=== PATIENT | male | born 1995 | race Caucasian/White ===

== ENCOUNTER 2022-08-03 11:07 | Emergency (ER) | payer OTHER ==
--- NOTE | 2022-08-03 11:09 | ERPHSYRPT ---
- History of Present Illness Time Seen by Provider: 08/03/22 11:09 Source: patient Exam Limitations: no limitations Physician History: This is a 26-year-old white male who is right-handed and was sweeping the floor when the broom broke and the metal portion caused approximately 2 cm superficial laceration inner aspect of left forearm below the elbow. This occurred prior to arrival. Patient cannot take any type of vaccination and refuses a tetanus injection. He also states he cannot take any antibiotic over 500 mg. Timing/Duration: today Quality: painful Severity: mild Location: extremities (Left forearm) Associated Symptoms: denies symptoms Allergies/Adverse Reactions: Benzodiazepines Allergy (Verified 08/03/22 11:25) cephalexin Allergy (Verified 08/03/22 11:24) morphine Allergy (Verified 08/03/22 11:25) Home Medications: Brexpiprazole [Rexulti] 1 mg PO DAILY 08/03/22 [History] Dextroamphetamine/Amphetamine [Dextroamp-Amphetamin 20 mg Tab] 20 mg PO BID 08/03/22 [History] Travel Risk - International Travel Have you traveled outside of the country in past 3 weeks: No - Coronavirus Screening Are you exhibiting any of the following symptoms?: No Close contact with a COVID-19 positive Pt in past 14-21 Days: No - Review of Systems Constitutional: No Symptoms Eyes: No Symptoms Ears, Nose, & Throat: No Symptoms Respiratory: No Symptoms Cardiac: No Symptoms Abdominal/Gastrointestinal: No Symptoms Genitourinary Symptoms: No Symptoms Musculoskeletal: No Symptoms Skin: No Symptoms Neurological: No Symptoms Psychological: No Symptoms Endocrine: No Symptoms Hematologic/Lymphatic: No Symptoms Immunological/Allergic: No Symptoms All Other Systems: Reviewed and Negative - Past Medical History Pertinent Past Medical History: Yes - Past Surgical History Past Surgical History: Yes - Nursing Vital Signs Nursing Vital Signs: Initial Vital Signs Pulse Rate 109 H 08/03/22 11:16 Blood Pressure 137/96 08/03/22 11:16 O2 Sat by Pulse Oximetry 100 08/03/22 11:16 Pain Scale Pain Intensity 1 - Physical Exam General Appearance: no apparent distress, alert, anxiety Eye Exam: PERRL/EOMI, eyes nml inspection Ears, Nose, Throat Exam: normal ENT inspection, moist mucous membranes Neck Exam: normal inspection, non-tender, supple, full range of motion Respiratory Exam: airway intact, No chest tenderness, No respiratory distress Cardiovascular Exam: regular rate/rhythm, normal heart sounds, normal peripheral pulses Gastrointestinal/Abdomen Exam: No tenderness Rectal Exam: not done Back Exam: normal inspection, normal range of motion, No CVA tenderness, No vertebral tenderness Extremity Exam: normal range of motion, pelvis stable, lacerations (2 cm transverse oriented laceration. Not actively bleeding. No foreign body present. Patient is neurovascularly intact. 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, normal mood/affect, nml cerebellar function, nml station & gait, sensation nml Skin Exam: laceration Lymphatic Exam: No adenopathy SpO2 Interpretation: normal O2 Delivery: Room Air Procedures - Laceration/Wound Repair Left Volar Arm Time of Procedure: 11:30 Wound Location: Left, lower arm Wound Length (cm): 2 Wound's Depth, Shape: superficial, linear Wound Explored: clean (Examination in bloodless field to the base and no foreign body noted.) Irrigated: Yes Hibiclens Prep: Yes Wound Repaired With: [place] (3 placed) Layer Closure?: No Progress: 08/03/22 11:42 Post laceration repair site was cleaned with Hibiclens solution. Area was then cleaned and dried antibiotic ointment, nonstick gauze and pressure dressing applied. There were no complications the patient taught the procedure well. - Course Nursing assessment & vital signs reviewed: Yes - Progress Progress: improved Counseled pt/family regarding: diagnosis, need for follow-up - Departure Departure Disposition: Home Clinical Impression: Laceration of left forearm Condition: Stable Critical Care Time: No Referrals: JACINDA JI FNP [Primary Care Provider] - Follow up/PCP as directed Additional Instructions: Keep the current dressing in place until noon on 08/04/2022. At that time, may remove the dressing and wash the site with soap and water daily. After each washing, blot dry use a hairdryer to dry the site and then reapply antibiotic ointment of choice and a nonstick bandage. Staple removal in 8 to 10 days. Use Tylenol and ibuprofen for pain control.
[2022-08-03 11:23] VITALS: BP 137/96; PULSE 109; O2SAT 100
== END 2022-08-03 11:55 | disposition home or self-care (01) ==
LOC: ED 11:07
DX: S51.812A Laceration without foreign body of left forearm, initial encounter (principal); W26.8XXA Contact with other sharp object(s), not elsewhere classified, initial encounter; Y93.E9 Activity, other interior property and clothing maintenance; Z79.899 Other long term (current) drug therapy
CPT/HCPCS: 12001; 99281

== ENCOUNTER 2022-09-21 12:24 | Emergency (ER) | payer OTHER ==
[2022-09-21 12:35] VITALS: BP 131/94
--- NOTE | 2022-09-21 12:58 | ERPHSYRPT ---
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 Pt ambulates with an upright steady gait, able to speak in clear full sentences Pt has laceration noted to posterior right third digit. Knuckle is swollen and tender, minimal movement of digit noted. Physician History: 26 yo wm w laceration R dorsal 3rd PIP joint of 15 hours duration. Pt has mild to moderate pain. He is R handed and states that he can not have a Tdap due to prior reaction. Pt denies other injuries at this time. Injury occurred as he was crushing a crystal. Occurred: yesterday (15 yrs ago ) Extremities Pain Location: 3rd finger: right Modifying Factors: Improves With: movement Associated Symptoms: none Allergies/Adverse Reactions: Benzodiazepines Allergy (Verified 08/03/22 11:25) cephalexin Allergy (Verified 08/03/22 11:24) morphine Allergy (Verified 08/03/22 11:25) immuniztions Allergy (Severe, Uncoded 09/21/22 12:36) Swelling I swell when I get any immunization including Tetanus Home Medications: Brexpiprazole [Rexulti] 1 mg PO DAILY 08/03/22 [History] Dextroamphetamine/Amphetamine [Dextroamp-Amphetamin 20 mg Tab] 20 mg PO BID 08/03/22 [History] Hx Tetanus, Diphtheria Vaccination/Date Given: No (allergic) Hx Influenza Vaccination/Date Given: No Hx Pneumococcal Vaccination/Date Given: No Travel Risk - International Travel Have you traveled outside of the country in past 3 weeks: No - Coronavirus Screening Are you exhibiting any of the following symptoms?: No Close contact with a COVID-19 positive Pt in past 14-21 Days: No - Vaccine Status Have you recieved a Covid-19 vaccination: No - Review of Systems Constitutional: No Symptoms Eyes: No Symptoms Ears, Nose, & Throat: No Symptoms Respiratory: No Symptoms Cardiac: No Symptoms Abdominal/Gastrointestinal: No Symptoms Genitourinary Symptoms: No Symptoms Skin: No Symptoms Neurological: No Symptoms Psychological: No Symptoms Endocrine: No Symptoms Hematologic/Lymphatic: No Symptoms Immunological/Allergic: No Symptoms - Past Medical History Pertinent Past Medical History: Yes Psycho-Social History: Attention Deficit Disorder, Bipolar, Other - Past Surgical History Past Surgical History: Yes Gastrointestinal: Appendectomy Musculoskeletal: Orthopedic Surgery Other Surgical History: urethra reopened, right hand surgery - Social History Smoking Status: Current every day smoker Exposure to second hand smoke: Yes Drug Use: none Patient Lives Alone: No - Nursing Vital Signs Nursing Vital Signs: Initial Vital Signs Temperature 97.4 F 09/21/22 12:28 Pulse Rate 98 H 09/21/22 12:28 Respiratory Rate 20 09/21/22 12:28 Blood Pressure 131/94 09/21/22 12:28 O2 Sat by Pulse Oximetry 99 09/21/22 12:28 Pain Scale Pain Intensity 2 Mildly hypertensive - Physical Exam General Appearance: no apparent distress Eyes, Ears, Nose, Throat Exam: normal ENT inspection, TMs normal, pharynx normal, moist mucous membranes Neck Exam: normal inspection, non-tender, supple, full range of motion, No Brudz inski, No Kernig's, No meningismus Cardiovascular/Respiratory Exam: chest non-tender, normal breath sounds, regular rate/rhythm, heart sounds normal Abdominal Exam: non-tender, soft Back Exam: normal inspection, normal range of motion, No CVA tenderness, No vertebral tenderness Shoulder Exam: normal inspection, non-tender, no evidence of injury Elbow/Forearm Exam: normal inspection, non-tender, no evidence of injury Wrist Exam: normal inspection, non-tender, no evidence of injury Hand Exam: laceration (Small, superficial laceration R dorsal PIP joint/good hemostasis/No evidence of tendon injury/FROM including extension/Mild edema/Mild TTP/Good distal capillary return and sensation) DTR - Upper Extremity Exam: bicep (R): 2+, bicep (L): 2+ Neuro/Tendon Exam: normal sensation, normal motor functions, normal tendon functions, responds to pain Mental Status Exam: alert, oriented x 3, cooperative Skin Exam: normal color, warm, dry, No rash SpO2 Interpretation: normal SpO2: 118 O2 Delivery: Room Air - Course Nursing assessment & vital signs reviewed: Yes - Radiology Exams Hand X-ray Interpretation: Discussed w/ radiologist (R hand-old 5th metacarpal fracture/otherwise neg) Ordered Tests: Active Orders 24 hr Category Date Time Status HAND (MINIMUM 3 VIEWS) Stat Exams 09/21/22 12:51 Completed - Progress Progress Note: 09/21/22 13:33 Wound cleansed w Hibiclens per nursing and sterilly dressed Wound not closed due to 15 hours old No evidence of tendon injury/Full extension and strength of digit wnl Pt advised to f/u w hand surgery if he has any problems 09/21/22 15:49 Counseled pt/family regarding: diagnosis, need for follow-up, rad results - Departure Departure Disposition: Home Clinical Impression: Finger laceration Condition: Stable Critical Care Time: No Referrals: DOCTOR,NO FAMILY [Primary Care Provider] - Follow up/PCP as directed Instructions: Wound Care (DC) Additional Instructions: Wash laceration twice a day with soap/water Watch for signs of infection-increasing redness/increasing pain/any pus/temperature greater than 100.5 Follow up with [facility] as needed Start Doxycycline twice a day for 10 days Prescriptions: Doxycycline Monohydrate 100 mg PO BID 10 Days #20 cap
--- NOTE | 2022-09-21 13:09 | XRAY ---
Indication: 3rd finger pain and bruising following injury. Comparison: None 3 portable views right hand demonstrates old 5th metacarpal fracture. No other bony, articular, or soft tissue abnormalities.
[2022-09-21 13:33] VITALS: PULSE 78
[2022-09-21 13:36] VITALS: O2SAT 118
== END 2022-09-21 13:49 | disposition home or self-care (01) ==
LOC: ED 12:24
DX: S61.212A Laceration without foreign body of right middle finger without damage to nail, initial encounter (principal); W26.8XXA Contact with other sharp object(s), not elsewhere classified, initial encounter; Z79.899 Other long term (current) drug therapy; Z28.310 Unvaccinated for COVID-19; Z72.0 Tobacco use
CPT/HCPCS: 73130; 99282

== ENCOUNTER 2024-04-05 20:02 | Emergency (ER) | payer OTHER ==
--- NOTE | 2024-04-05 20:05 | ERPHSYRPT ---
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 It was worse this morning. Despite that he did go to work. In the last several days he st ates that it has been very hot and humid indoors while at work. Patient has no known exposures to individuals similar symptoms or who have been diagnosed with flu's. He denies sore throat. He denies chest pain. He denies cough. He denies shortness of breath. He denies headache. He denies fever. He denies nausea, vomiting and diarrhea. Timing/Duration: yesterday, worse Severity: mild Character of Deficits: none (Moderate) Deficits: no difficulties Baseline/Normal Cognition: alert oriented x 3 Current Cognition: alert oriented x 3 Baseline Gait: walks w/o assistance Associated Symptoms: weakness, other (Dizziness/lightheadedness) Allergies/Adverse Reactions: Benzodiazepines Allergy (Verified 04/05/24 20:26) cephalexin Allergy (Verified 04/05/24 20:26) morphine Allergy (Verified 04/05/24 20:26) immuniztions Allergy (Severe, Uncoded 04/05/24 20:26) Swelling I swell when I get any immunization including Tetanus Home Medications: Dextroamphetamine/Amphetamine [Dextroamp-Amphetamin 20 mg Tab] 20 mg PO BID 08/03/22 [History] Hx Tetanus, Diphtheria Vaccination/Date Given: No (allergic) Hx Influenza Vaccination/Date Given: No Hx Pneumococcal Vaccination/Date Given: No Travel Risk - International Travel Have you traveled outside of the country in past 3 weeks: No - Emerging Infectious Disease Are you exhibiting symptoms associated with any current EIDs: Yes 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) - Review of Systems Constitutional: Weakness Eyes: No Symptoms Ears, Nose, & Throat: No Symptoms Respiratory: No Symptoms Cardiac: No Symptoms Abdominal/Gastrointestinal: No Symptoms Genitourinary Symptoms: No Symptoms Musculoskeletal: No Symptoms Skin: No Symptoms Neurological: Dizziness Endocrine: No Symptoms Hematologic/Lymphatic: No Symptoms Immunological/Allergic: No Symptoms All Other Systems: Reviewed and Negative - Past Medical History Pertinent Past Medical History: Yes Psycho-Social History: Attention Deficit Disorder, Bipolar, Other - Past Surgical History Past Surgical History: Yes Gastrointestinal: Appendectomy Musculoskeletal: Orthopedic Surgery Other Surgical History: urethra reopened, right hand surgery - Social History Smoking Status: Current every day smoker Exposure to second hand smoke: Yes Drug Use: none Patient Lives Alone: No - Nursing Vital Signs Nursing Vital Signs: Initial Vital Signs Temperature 98.3 F 04/05/24 20:28 Pulse Rate 102 H 04/05/24 20:28 Respiratory Rate 13 04/05/24 20:28 Blood Pressure 125/81 04/05/24 20:28 O2 Sat by Pulse Oximetry 98 04/05/24 20:28 Pain Scale Pain Intensity 0 - [place] Coma Scale Best Eye Response (Candie): (4) open spontaneously Best Verbal Response (Candie): (5) oriented Best Motor Response (Candie): (6) obeys commands [place] Total: 15 - Physical Exam General Appearance: no apparent distress, alert Eye Exam: bilateral eye: normal inspection, PERRL, EOMI Ears, Nose, Throat Exam: normal ENT inspection, TMs normal, pharynx normal, moist mucous membranes Neck Exam: normal inspection, non-tender, supple, full range of motion Respiratory: normal breath sounds, lungs clear, airway intact, No chest tenderness, No respiratory distress Cardiovascular: regular rate/rhythm, normal heart sounds, normal peripheral pulses Gastrointestinal: soft, normal bowel sounds, No tenderness Rectal Exam: not done Back Exam: normal inspection, normal range of motion, No CVA tenderness, No vertebral tenderness Extremity Exam: normal inspection, normal range of motion, pelvis stable Mental Status: alert, oriented x 3, cooperative manager sign Exam: normal hearing, normal speech, PERRL, tongue midline Coordination/Gait: normal gait, normal cerebellar function Motor/Sensory: no motor deficit, no sensory deficit, no pronator drift Skin Exam: normal color, warm, dry SpO2 Interpretation: normal O2 Delivery: Room Air - Course Nursing assessment & vital signs reviewed: Yes EKG Interpreted by Me: RATE (95), Sinus Rhythm, NORMAL AXIS, NORMAL INTERVALS, NORMAL QRS, NORMAL ST-T, Other (No acute ischemic changes on today's twelve-lead EKG. No comparison EKG available.) Ordered Tests: Active Orders 24 hr Category Date Time Status Clean Catch Urine Specimen STAT Care 04/05/24 20:36 Active EKG-ER Only STAT Care 04/05/24 20:35 Active IV Insertion STAT Care 04/05/24 20:35 Active Pulse Oximetry (ED) STAT Care 04/05/24 20:35 Active HEAD WITHOUT CONTRAST [CT] Stat Exams 04/05/24 20:35 Completed CBC W DIFF Stat Lab 04/05/24 20:45 Completed CMP Stat Lab 04/05/24 20:45 Completed MONO SCREEN Stat Lab 04/05/24 20:45 Completed UA W/RFX UR CULTURE Stat Lab 04/05/24 20:44 Completed Urine Triage Profile Stat Lab 04/05/24 20:45 Completed Medication Summary Discontinued Medications Generic Name Dose Route Start Last Admin Trade Name Freq PRN Reason Stop Dose Admin Sodium Chloride 1,000 mls @ 999 mls/hr 04/05/24 20:35 04/05/24 21:50 Sodium Chloride 0.9% 1000 Ml IV 04/05/24 21:35 Infused .Q1H1M STA Infusion Sodium Chloride Confirm 04/05/24 20:47 Sodium Chloride 0.9% 1000 Ml Administered 04/05/24 20:48 Dose 1,000 mls @ ud .ROUTE .STK-MED ONE Lab/Rad Data: Laboratory Result Diagrams 04/05/24 20:45 04/05/24 20:45 Laboratory Results 04/05/24 04/05/24 04/05/24 Range/Units 20:45 20:45 20:45 WBC (4.23-9.07) x10^3/uL RBC (4.63-6.08) x10^6/uL Hgb (13.7-17.5) g/dL Hct (40.1-51.0) % MCV (79.0-92.2) fL MCH (25.7-32.2) pg MCHC (32.3-36.5) g/dL RDW (11.6-14.4) % Plt Count (163-337) x10^3/uL MPV (9.4-12.4) fL Gran % (34.0-67.9) % Immature Gran % (Auto) (0.001-0.429) % Nucleat RBC Rel Count (0.00-0.2) % Eos # (Auto) (0.04-0.54) x10^3/uL Immature Gran # (Auto) (0.001-0.031) x10^3u/L Absolute Lymphs (auto) (1.32-3.57) x10^3/uL Absolute Monos (auto) (0.30-0.82) x10^3/uL Absolute Nucleated RBC (0.00-0.012) x10^3u/L Lymphocytes % (21.8-53.1) % Monocytes % (5.3-12.2) % Eosinophils % (0.8-7.0) % Basophils % (0.2-1.2) % Absolute Granulocytes (1.78-5.38) x10^3/uL Basophils # (0.01-0.08) x10^3/uL Sodium 142 (135-145) mmol/L Potassium 3.8 (3.5-5.1) mmol/L Chloride 105 (98-107) mmol/L Carbon Dioxide 28 (22-30) mmol/L Anion Gap 12.3 (5-15) MEQ/L BUN 10 (9-20) mg/dL Creatinine 1.15 (0.66-1.25) mg/dL Estimated GFR 89.5 ML/MIN Glucose 96 (74-106) mg/dL Calcium 9.7 (8.4-10.2) mg/dL Total Bilirubin 0.60 (0.2-1.3) mg/dL AST 36 (17-59) U/L ALT 41 (0-50) U/L Alkaline Phosphatase 63 (38-126) U/L Serum Total Protein 7.5 (6.3-8.2) g/dL Albumin 4.5 (3.5-5.0) g/dL Urine Color (Yellow) Urine Appearance (Clear) Urine pH (4.6-8.0) Ur Specific [place] (1.005-1.030) Urine Protein (Negative) Urine Glucose (UA) (Negative) mg/dL Urine Ketones (Negative) Urine Blood (Negative) Urine Nitrite (Negative) Urine Bilirubin (Negative) Urine Urobilinogen (0.2) mg/dL Ur Leukocyte Esterase (Negative) U Hyaline Cast (Auto) (0-2) /LPF Urine Microscopic RBC (0-5) /HPF Urine Microscopic WBC (0-5) /HPF Ur Epithelial Cells (None Seen) /HPF Urine Bacteria (None Seen) /HPF Urine Culture Reflexed (NO) Urine Opiates Level NEGATIVE (NEGATIVE) Ur Methadone NEGATIVE (NEGATIVE) Urine Barbiturates NEGATIVE (NEGATIVE) Ur Phencyclidine (PCP) NEGATIVE (NEGATIVE) Urine Amphetamine POSITIVE A (NEGATIVE) U Benzodiazepine Level NEGATIVE (NEGATIVE) Urine Cocaine NEGATIVE (NEGATIVE) Urine Marijuana (THC) POSITIVE A (NEGATIVE) Monoscreen NEGATIVE (NEGATIVE) 04/05/24 04/05/24 Range/Units 20:45 20:44 WBC 7.8 (4.23-9.07) x10^3/uL RBC 5.37 (4.63-6.08) x10^6/uL Hgb 15.9 (13.7-17.5) g/dL Hct 45.8 (40.1-51.0) % MCV 85.3 (79.0-92.2) fL MCH 29.6 (25.7-32.2) pg MCHC 34.7 (32.3-36.5) g/dL RDW 12.1 (11.6-14.4) % Plt Count 251 (163-337) x10^3/uL MPV 10.8 (9.4-12.4) fL Gran % 62.5 (34.0-67.9) % Immature Gran % (Auto) 0.1 (0.001-0.429) % Nucleat RBC Rel Count 0.0 (0.00-0.2) % Eos # (Auto) 0.26 (0.04-0.54) x10^3/uL Immature Gran # (Auto) 0.01 (0.001-0.031) x10^3u/L Absolute Lymphs (auto) 1.98 (1.32-3.57) x10^3/uL Absolute Monos (auto) 0.64 (0.30-0.82) x10^3/uL Absolute Nucleated RBC 0.00 (0.00-0.012) x10^3u/L Lymphocytes % 25.4 (21.8-53.1) % Monocytes % 8.2 (5.3-12.2) % Eosinophils % 3.3 (0.8-7.0) % Basophils % 0.5 (0.2-1.2) % Absolute Granulocytes 4.88 (1.78-5.38) x10^3/uL Basophils # 0.04 (0.01-0.08) x10^3/uL Sodium (135-145) mmol/L Potassium (3.5-5.1) mmol/L Chloride (98-107) mmol/L Carbon Dioxide (22-30) mmol/L Anion Gap (5-15) MEQ/L BUN (9-20) mg/dL Creatinine (0.66-1.25) mg/dL Estimated GFR ML/MIN Glucose (74-106) mg/dL Calcium (8.4-10.2) mg/dL Total Bilirubin (0.2-1.3) mg/dL AST (17-59) U/L ALT (0-50) U/L Alkaline Phosphatase (38-126) U/L Serum Total Protein (6.3-8.2) g/dL Albumin (3.5-5.0) g/dL Urine Color Yellow (Yellow) Urine Appearance Clear (Clear) Urine pH 5.5 (4.6-8.0) Ur Specific [place] 1.020 (1.005-1.030) Urine Protein Negative (Negative) Urine Glucose (UA) Negative (Negative) mg/dL Urine Ketones Trace A (Negative) Urine Blood Negative (Negative) Urine Nitrite Negative (Negative) Urine Bilirubin Negative (Negative) Urine Urobilinogen 1.0 A (0.2) mg/dL Ur Leukocyte Esterase Negative (Negative) U Hyaline Cast (Auto) NONE SEEN (0-2) /LPF Urine Microscopic RBC 0-2 (0-5) /HPF Urine Microscopic WBC 0-2 (0-5) /HPF Ur Epithelial Cells None Seen (None Seen) /HPF Urine Bacteria None Seen (None Seen) /HPF Urine Culture Reflexed NO (NO) Urine Opiates Level (NEGATIVE) Ur Methadone (NEGATIVE) Urine Barbiturates (NEGATIVE) Ur Phencyclidine (PCP) (NEGATIVE) Urine Amphetamine (NEGATIVE) U Benzodiazepine Level (NEGATIVE) Urine Cocaine (NEGATIVE) Urine Marijuana (THC) (NEGATIVE) Monoscreen (NEGATIVE) - Progress Progress: improved Progress Note: 04/05/24 20:58 My medical decision making and the assignment of moderate complexity to this patient's medical issue today is based on review of the patient's past medical history, review of the patient's medication list, review of patient drug allergy list, history present illness and physical findings on examination. The workup in this patient includes CBC, CMP, twelve-lead EKG, urinalysis, urine drug screen, viral swabs, monotest, CT scan of the head and infusion of normal saline solution. Differential diagnosis includes but is not limited to electrolyte abnormalities, dehydration, urinary tract infection, viral illness, acute intracranial abnorma lity 04/05/24 21:14 Patient refuses viral swabs 04/05/24 21:55 I interpreted the patient's laboratory data test results. The patient tested positive for amphetamines. However, he is on this type of medication for to treat his ADD. There are no other significant findings on the laboratory data results to suggest an acute or emergent medical issue. CT scan of the head without contrast was interpreted by the radiologist and I reviewed the impression. The impression states no evidence of intracerebral hemorrhage or established infarction. Counseled pt/family regarding: lab results, diagnosis, need for follow-up, rad results Medical Desision Making - Diagnostic Testing Diagnostic test were ordered, analyzed, and reviewed by me: Yes Radiological Interpretation: Reviewed by me, Teleradiologist Report - Risk of complications The pt has a mod risk of morbidity or mortality based on: Need for prescription drug management - Departure Departure Disposition: Home Clinical Impression: Dizziness, Dehydration Condition: Stable Critical Care Time: No Referrals: DOCTOR,NO FAMILY [NON-STAFF PHY W/O PRIVILEGES] - Follow up/PCP as directed Additional Instructions: Drink plenty of clear liquids before advancing your diet. Take your medications as prescribed. Call your prescribing provider tomorrow, 04/06/2024, to make arranges for follow-up appointment for further evaluation and management. If your dizziness recurs and persist, take the antivertigo medication that has been prescribed to you. Prescriptions: Meclizine HCl 25 mg [Antivert 25 mg] 25 mg PO Q8H PRN #10 tablet PRN Reason: Dizziness
[2024-04-05 20:36] VITALS: TEMP 98.3
[2024-04-05] MEDS ORDERED: Sodium Chloride 0.9% 1000 ML 1,000 ML ONE (20:47)
[2024-04-05] MEDS: Sodium Chloride 0.9% 1000 ML 1,000 ML IV STA (20:48)
[2024-04-05 20:58] LABS: Absolute Neutrophil Ct (ANC) 4.88 x10^3/uL (1.78-5.38); BASOPHIL % 0.5 % (0.2-1.2); Basophil (Absolute #) 0.04 x10^3/uL (0.01-0.08); Eosinophil % 3.3 % (0.8-7.0); Eosinophil (Absolute #) 0.26 x10^3/uL (0.04-0.54); Hematocrit 45.8 % (40.1-51.0); Hemoglobin 15.9 g/dL (13.7-17.5); IMMATURE GRAN # 0.01 x10^3u/L (0.001-0.031); IMMATURE GRAN % 0.1 % (0.001-0.429); Lymphocyte (Absolute #) 1.98 x10^3/uL (1.32-3.57); Lymphocytes % 25.4 % (21.8-53.1); Mean Cell Volume 85.3 fL (79.0-92.2); Mean Corpuscular Hemoglobin 29.6 pg (25.7-32.2); Mean Corpuscular Hgb Concent. 34.7 g/dL (32.3-36.5); Mean Platelet Volume 10.8 fL (9.4-12.4); Monocyte (Absolute #) 0.64 x10^3/uL (0.30-0.82); Monocytes % 8.2 % (5.3-12.2); Neutrophil % 62.5 % (34.0-67.9); Platelet Count 251 x10^3/uL (163-337); Red Blood Count 5.37 x10^6/uL (4.63-6.08); Red Cell Distribution Width 12.1 % (11.6-14.4); White Blood Count 7.8 x10^3/uL (4.23-9.07)
[2024-04-05 21:05] LABS: Appearance Clear (Clear); Bacteria None Seen /HPF (None Seen); Bilirubin Negative (Negative); Blood Negative (Negative); Epithelial Cells None Seen /HPF (None Seen); Glucose, Urine Negative (Negative); Hyaline Casts NONE SEEN /LPF (0-2); Ketones Trace (Negative); Leukocyte Esterase Negative (Negative); Nitrite Negative (Negative); Ph 5.5 (4.6-8.0); Protein,Urine Dip Negative (Negative); RBC 0-2 /HPF (0-5); WBC 0-2 /HPF (0-5)
[2024-04-05 21:11] LABS: ALBUMIN 4.5 g/dL (3.5-5.0); ANION GAP 12.3 MEQ/L (5-15); BILIRUBIN,TOTAL 0.6 mg/dL (0.2-1.3); Calcium 9.7 mg/dL (8.4-10.2); Creatinine 1 1.15 mg/dL (0.66-1.25); EST GLOMERULAR FILTRATION RATE 89.5 ML/MIN; Potassium 3.8 mmol/L (3.5-5.1); Total Protein 7.5 g/dL (6.3-8.2)
[2024-04-05 21:18] LABS: ADD URINE CULTURE? NO (NO)
[2024-04-05 21:22] LABS: Amphetamine,Urine POSITIVE (NEGATIVE); Barbiturate,Urine NEGATIVE (NEGATIVE); Benzodiazepine,Urine NEGATIVE (NEGATIVE); Cocaine,Urine NEGATIVE (NEGATIVE); Methadone,Urine NEGATIVE (NEGATIVE); Opiate,Urine NEGATIVE (NEGATIVE); PCP,Urine NEGATIVE (NEGATIVE); THC,Urine POSITIVE (NEGATIVE)
--- NOTE | 2024-04-05 21:52 | XRAY ---
CLINICAL HISTORY: Dizziness COMPARISON: None. TECHNIQUE: An axial non-contrast CT scan of the brain was performed from the skull base to the high parietal region. CTDI: 68.82, DLP:1510.66. One of the following dose-reduction techniques was utilized for this exam. Automated exposure control, adjustment of the mA and/or kV according to patient size, and use of iterative reconstruction. FINDINGS: The brain parenchyma shows a normal appearance. Carpio-white matter differentiation is maintained. No midline shifts or deformity. No intracerebral or extra axial hematoma. Normal size and configuration of the cerebral ventricles. Normal CT appearance of the posterior fossa structures namely the cerebellar hemispheres, brainstem, and cerebellar peduncles. The bony structures in the skull base are unremarkable. There are no definite calvarium fractures. Septum nasi shows mild deviation to the left with a bony spur. The scanned paranasal sinuses are clear. IMPRESSION: 1. No evidence of intracerebral hemorrhage or established infarction. 2. Advised MRI brain acute stroke for further evaluation if clinically needed. Electronically Signed by: Jolly Rodriguez MD. (04/05/2024 21:47:12 EDT)
[2024-04-05 22:02] VITALS: BP 100/62; PULSE 57; RESP 19; O2SAT 98
== END 2024-04-05 22:25 | disposition home or self-care (01) ==
LOC: ED 20:02
DX: R42 Dizziness and giddiness (principal); E86.0 Dehydration; Z79.899 Other long term (current) drug therapy; Z72.0 Tobacco use
CPT/HCPCS: 36000; 36415; 70450; 80053; 80307; 81001; 85025; 86308; 93005; 94760; 96360; 99284

== ENCOUNTER 2024-05-31 23:32 | Emergency (ER) | payer SELFPAY ==
[2024-05-31 23:59] VITALS: BP 120/71; PULSE 86; RESP 18; TEMP 97.8; O2SAT 98
--- NOTE | 2024-06-01 00:15 | ERPHSYRPT ---
- History of Present Illness Time Seen by Provider: 06/01/24 00:05 Source: patient Exam Limitations: no limitations Patient Subjective Stated Complaint: pt states he was washing dishes and the sprayer wasnt working correctly, he used his knife to try to pry the piece off, knife slipped and he stabbed himself in the lt hand Triage Nursing Assessment: pt alert and oriented. answers questions approp. pt ambualtes into room with steady gait noted. respirations nonlabored. skinw arm and dry. approx 1cm wound to medial aspect of lt palm. minimal bleeding noted. Physician History: 28yo m presents via private vehicle for laceration of left hand that occurred shortly [employer]. Pt reports he was trying to open a lid using his pocket knife when it slipped and punctured his left thenar eminence. Pt reports some bleeding at time of puncture. Pt reports good sensation in the fingers and palm. Pt reports anaphylactic allergy to tetanus vaccination. Pt reports the knife was not clean at time of puncture. Timing/Duration: today Severity: mild Associated Symptoms: denies symptoms Allergies/Adverse Reactions: Benzodiazepines Allergy (Verified 05/31/24 23:59) cephalexin Allergy (Verified 05/31/24 23:59) morphine Allergy (Verified 05/31/24 23:59) immuniztions Allergy (Severe, Uncoded 05/31/24 23:59) Swelling I swell when I get any immunization including Tetanus Home Medications: Dextroamphetamine/Amphetamine [Dextroamp-Amphetamin 20 mg Tab] 20 mg PO BID 08/03/22 [History] Hx Tetanus, Diphtheria Vaccination/Date Given: No (allergic) Hx Influenza Vaccination/Date Given: No Hx Pneumococcal Vaccination/Date Given: No Immunizations Up to Date: No (allergic) Travel Risk - International Travel Have you traveled outside of the country in past 3 weeks: No - Emerging Infectious Disease Are you exhibiting symptoms associated with any current EIDs: No Symptoms: Other (Please 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) (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) - Review of Systems Constitutional: No Symptoms Respiratory: No Symptoms Cardiac: No Symptoms Abdominal/Gastrointestinal: No Symptoms Skin: Other (laceration) - Past Medical History Pertinent Past Medical History: Yes Neurological History: Migraines ENT History: No Pertinent History Cardiac History: No Pertinent History Respiratory History: No Pertinent History Endocrine Medical History: Hypoglycemia Musculoskeletal History: No Pertinent History GI Medical History: Irritable Bowel History: No Pertinent History Psycho-Social History: Attention Deficit Disorder, Bipolar, Other Male Reproductive Disorders: No Pertinent History Other Medical History: mitral valve prolapse - Past Surgical History Past Surgical History: Yes Gastrointestinal: Appendectomy Musculoskeletal: Orthopedic Surgery Other Surgical History: urethra reopened at 4yrs, right hand surgery. wisdom teeth - Social History Smoking Status: Current every day smoker How long have you smoked: 12 yrs Exposure to second hand smoke: Yes Drug Use: marijuana Patient Lives Alone: No - Social Determinants of Health Will the patient participate in the screening: Yes Do you worry about a steady place to live?: No Do you have any problems with any of the following?: No known problems In the past 12 months,have you had to go without utilities?: No Transportation Issues: No Has anyone in your support network made you feel unsafe?: No Have you or anyone in your house had to go without enough: No - Nursing Vital Signs Nursing Vital Signs: Initial Vital Signs Temperature 97.8 F 05/31/24 23:43 Pulse Rate 86 05/31/24 23:43 Respiratory Rate 18 05/31/24 23:43 Blood Pressure 120/71 05/31/24 23:43 O2 Sat by Pulse Oximetry 98 05/31/24 23:43 Pain Scale Pain Intensity 4 - Physical Exam General Appearance: no apparent distress, alert Respiratory Exam: normal breath sounds, airway intact, No respiratory distress Cardiovascular Exam: regular rate/rhythm, normal heart sounds Neurologic Exam: alert, oriented x 3, cooperative, other (left hand and upper extremity neurovascularly intact throughout), No motor deficits, No sensory deficit Skin Exam: laceration (small, linear, well approximating 8mm laceration to left thenar eminence - hemostatic, minimal erythema surrounding puncture site) SpO2 Interpretation: normal SpO2: 98 O2 Delivery: Room Air - Progress Progress: improved Progress Note: 06/01/24 00:16 laceration repaired w/ dermabond and steri strips x 3 given course of augmentin for prophylaxis in setting of unclean blade in laceration wound wrapped w/ non-stick gauze and coband deferred tetanus shot - pt reports anaphylactic reaction to tetanus vaccine in past plan for discharge home, given list of PCP's in area complete full course of antibiotic (augmentin) keep area clean/dry as possible, allow steri strip to fall off on its own return to ED if: develop significant swelling in hand, lose strength or sensation in right hand, right hand turns purple/blue 06/01/24 00:32 Counseled pt/family regarding: diagnosis, need for follow-up Medical Desision Making - Risk of complications Minimal Risk: Minimal risk of morbidity - Departure Departure Disposition: Home Clinical Impression: Laceration of hand Qualifiers: Encounter type: initial encounter Foreign body presence: without foreign body Laterality: right Qualified Code(s): S61.411A - Laceration without foreign body of right hand, initial encounter Condition: Stable Critical Care Time: No Referrals: DOCTOR,NO FAMILY [Primary Care Provider] - Follow up/PCP as directed Additional Instructions: plan for discharge home, given list of PCP's in area complete full course of antibiotic (augmentin) keep area clean/dry as possible, allow steri strip to fall off on its own return to ED if: develop significant swelling in hand, lose strength or sensation in right hand, right hand turns purple/blue Prescriptions: Amox Tr/Potass Clav. 875 mg [Augmentin 875-125 Tablet] 875 mg PO BID 7 Days #13 tablet
[2024-06-01] MEDS ORDERED: Augmentin 875-125 Tablet ONE (00:41)
[2024-06-01] MEDS: Augmentin 875-125 Tablet PO ONE (00:48)
== END 2024-06-01 01:13 | disposition home or self-care (01) ==
LOC: ED 23:32
DX: S61.411A Laceration without foreign body of right hand, initial encounter (principal); W26.0XXA Contact with knife, initial encounter; Y93.G1 Activity, food preparation and clean up; Z79.899 Other long term (current) drug therapy; Z72.0 Tobacco use
CPT/HCPCS: 12001; 99281; A9270-GY

== ENCOUNTER 2024-07-23 17:52 | Emergency (ER) | payer SELFPAY ==
[2024-07-23 18:04] VITALS: TEMP 98.9
--- NOTE | 2024-07-23 18:05 | ERPHSYRPT ---
- History of Present Illness Time Seen by Provider: 07/23/24 18:05 Source: patient Exam Limitations: no limitations Patient Subjective Stated Complaint: Pt c/o of swelling in his left arm just above his AC and under his armpit for the past 4-5 days Triage Nursing Assessment: Pt brought to the ER by his friend, nena melo, rates pain as 4/10 when not being touched, pulses normal, skin n/w/d, thinks that he has been running a fever off and on for a couple of days, left arm above the AC is swollen and red, denies injury, doesn't appear to be in any distress Physician History: This is a right handed 28-year-old white male patient who presents to the emergency room department by private vehicle escorted by friend who does not have a primary care provider and noticed left arm, medial aspect, swelling tenderness and redness at approximately the level of the elbow over the last 4 to 5 days. He denies injection of any drugs in this upper extremity. He has had no trauma to this area. He has not had any objective or subjective fevers. Patient states that he has a family history that several different types of c ancers run in his family. Occurred: days ago (4 to 5 days ago) Method of Injury: other (No injury) Quality: aching Severity of Pain-Max: mild (To moderate) Severity of Pain-Current: mild (To moderate) Extremities Pain Location: elbow: left (Medial aspect defined subcutaneous mass, mobile) Modifying Factors: Improves With: other (Tender to palpation) Associated Symptoms: none Allergies/Adverse Reactions: Benzodiazepines Allergy (Verified 07/23/24 18:04) cephalexin Allergy (Verified 07/23/24 18:04) morphine Allergy (Verified 07/23/24 18:04) immuniztions Allergy (Severe, Uncoded 07/23/24 18:04) Swelling I swell when I get any immunization including Tetanus Home Medications: Dextroamphetamine/Amphetamine [Dextroamp-Amphetamin 20 mg Tab] 20 mg PO BID 08/03/22 [History] Hx Tetanus, Diphtheria Vaccination/Date Given: No (allergic) Hx Influenza Vaccination/Date Given: No Hx Pneumococcal Vaccination/Date Given: No Travel Risk - International Travel Have you traveled outside of the country in past 3 weeks: No - Emerging Infectious Disease Are you exhibiting symptoms associated with any current EIDs: No 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) - Review of Systems Constitutional: No Symptoms Eyes: No Symptoms Ears, Nose, & Throat: No Symptoms Respiratory: No Symptoms Cardiac: No Symptoms Abdominal/Gastrointestinal: No Symptoms Genitourinary Symptoms: No Symptoms Musculoskeletal: Other (Tender, subcutaneous mass medial aspect left elbow, redness of skin overlying the mass) Skin: Cellulitis (Questionable cellulitis of skin overlying this tender mobile mass medial aspect left elbow) Neurological: No Symptoms Psychological: No Symptoms Endocrine: No Symptoms Hematologic/Lymphatic: No Symptoms Immunological/Allergic: No Symptoms All Other Systems: Reviewed and Negative - Past Medical History Pertinent Past Medical History: Yes Neurological History: Migraines ENT History: No Pertinent History Cardiac History: No Pertinent History Respiratory History: No Pertinent History Endocrine Medical History: Hypoglycemia Musculoskeletal History: No Pertinent History GI Medical History: Irritable Bowel History: No Pertinent History Psycho-Social History: Attention Deficit Disorder, Bipolar, Other Male Reproductive Disorders: No Pertinent History Other Medical History: mitral valve prolapse - Past Surgical History Past Surgical History: Yes Gastrointestinal: Appendectomy Musculoskeletal: Orthopedic Surgery Other Surgical History: urethra reopened at 4yrs, right hand surgery. wisdom teeth - Social History Smoking Status: Current every day smoker How long have you smoked: 12 yrs Exposure to second hand smoke: Yes Drug Use: marijuana Patient Lives Alone: No - Social Determinants of Health Will the patient participate in the screening: Yes Do you worry about a steady place to live?: No Do you have any problems with any of the following?: No known problems In the past 12 months,have you had to go without utilities?: No Transportation Issues: No Has anyone in your support network made you feel unsafe?: No Have you or anyone in your house had to go without enough: No - Nursing Vital Signs Nursing Vital Signs: Initial Vital Signs Temperature 98.9 F 07/23/24 17:57 Pulse Rate 94 H 07/23/24 17:57 Blood Pressure 127/82 07/23/24 17:57 O2 Sat by Pulse Oximetry 100 07/23/24 17:57 Pain Scale Pain Intensity 2 - Physical Exam General Appearance: no apparent distress, alert, anxiety Eyes, Ears, Nose, Throat Exam: normal ENT inspection, moist mucous membranes Neck Exam: normal inspection, non-tender, supple, full range of motion Cardiovascular/Respiratory Exam: chest non-tender, normal breath sounds, regular rate/rhythm, heart sounds normal, no respiratory distress Abdominal Exam: non-tender Back Exam: normal inspection, normal range of motion, No CVA tenderness, No vertebral tenderness Shoulder Exam: normal inspection, non-tender, no evidence of injury, normal ROM Elbow/Forearm Exam: no evidence of injury, normal ROM, soft tissue tenderness (4 cm axial dimension by 2-1/2 cm cross dimension mobile, tender subcutaneous mass with redness of overlying skin), No bone tenderness, No deformity Wrist Exam: normal inspection, non-tender, no evidence of injury, normal ROM Hand Exam: normal inspection, non-tender, no evidence of injury, normal ROM Neuro/Tendon Exam: normal sensation, normal motor functions, normal tendon fu nctions, responds to pain, no evidence tendon injury Mental Status Exam: alert, oriented x 3, cooperative Skin Exam: warm, dry, other (Questionable localized cellulitis of the skin overlying the left medial elbow subcutaneous mass) SpO2: 100 - Course Nursing assessment & vital signs reviewed: Yes Ordered Tests: Active Orders 24 hr Category Date Time Status UPPER EXTREMITY W/O CONTRAST [CT] Stat Exams 07/23/24 18:24 Taken BLOOD CULTURE Stat Lab 07/23/24 18:35 Received CBC W DIFF Stat Lab 07/23/24 18:35 Completed CMP Stat Lab 07/23/24 18:35 Completed Lab/Rad Data: Laboratory Result Diagrams 07/23/24 18:35 07/23/24 18:35 Laboratory Results 07/23/24 07/23/24 Range/Units 18:35 18:35 WBC 8.8 (4.23-9.07) x10^3/uL RBC 5.02 (4.63-6.08) x10^6/uL Hgb 14.3 (13.7-17.5) g/dL Hct 42.6 (40.1-51.0) % MCV 84.9 (79.0-92.2) fL MCH 28.5 (25.7-32.2) pg MCHC 33.6 (32.3-36.5) g/dL RDW 12.1 (11.6-14.4) % Plt Count 293 (163-337) x10^3/uL MPV 10.3 (9.4-12.4) fL Gran % 65.8 (34.0-67.9) % Immature Gran % (Auto) 0.6 H (0.001-0.429) % Nucleat RBC Rel Count 0.0 (0.00-0.2) % Eos # (Auto) 0.12 (0.04-0.54) x10^3/uL Immature Gran # (Auto) 0.05 H (0.001-0.031) x10^3u/L Absolute Lymphs (auto) 1.91 (1.32-3.57) x10^3/uL Absolute Monos (auto) 0.84 H (0.30-0.82) x10^3/uL Absolute Nucleated RBC 0.00 (0.00-0.012) x10^3u/L Lymphocytes % 21.8 (21.8-53.1) % Monocytes % 9.6 (5.3-12.2) % Eosinophils % 1.4 (0.8-7.0) % Basophils % 0.8 (0.2-1.2) % Absolute Granulocytes 5.77 H (1.78-5.38) x10^3/uL Basophils # 0.07 (0.01-0.08) x10^3/uL Sodium 138 (135-145) mmol/L Potassium 3.8 (3.5-5.1) mmol/L Chloride 104 (98-107) mmol/L Carbon Dioxide 24 (22-30) mmol/L Anion Gap 14.8 (5-15) MEQ/L BUN 13 (9-20) mg/dL Creatinine 1.14 (0.66-1.25) mg/dL Estimated GFR 90.4 ML/MIN Glucose 99 (74-106) mg/dL Calcium 9.5 (8.4-10.2) mg/dL Total Bilirubin 0.50 (0.2-1.3) mg/dL AST 46 (17-59) U/L ALT 58 H (0-50) U/L Alkaline Phosphatase 78 (38-126) U/L Serum Total Protein 8.1 (6.3-8.2) g/dL Albumin 4.4 (3.5-5.0) g/dL - Progress Progress: unchanged Progress Note: 07/23/24 18:33 My medical decision making and the assignment of moderate complexity to this patient's medical issue today is based on review of the patient's past medical history, review the patient's medication list, review of the patient's drug allergy list, history present illness and physical findings on examination. This patient's workup includes CBC, CMP, blood culture and CT scan of the left upper extremity. Differential diagnosis includes but is not limited to subcutaneous hematoma, subcutaneous abscess, subcutaneous lipoma 07/23/24 18:34 The patient was requesting for me to run a panel for STDs as well as tumor markers. I explained to him that this was an emergency department and those studies that he is requested to be done are not related directly to his complaint today and do not have to be run on an emergent basis. These can be performed on an outpatient basis. Patient does not have a primary care provider but we will be providing him with a list of names and phone numbers of accepting medical providers. 07/23/24 20:27 I interpreted the patient's laboratory data results. Based on the laboratory data results, there are no acute, emergent findings. The CT scan of the left upper extremity without contrast was interpreted by the radiologist and I reviewed the impression. There are no comparison studies. The impression states soft tissue swelling/induration over region of interest with underlying 4 x 4 cm x 1 0.5 cm x 1.4 cm indeterminant noncalcified mass Counseled pt/family regarding: lab results, diagnosis, need for follow-up, rad results Medical Desision Making - Independent Historian Additional History obtained from: Relative/friend - Diagnostic Testing Diagnostic test were ordered, analyzed, and reviewed by me: Yes Radiological Interpretation: Reviewed by me, Teleradiologist Report - Risk of complications The pt has a mod risk of morbidity or mortality based on: Need for prescription drug management - Departure Departure Disposition: Home Clinical Impression: Mass of left elbow Condition: Stable Critical Care Time: No Referrals: DOCTOR,NO FAMILY [Primary Care Provider] - Follow up/PCP as directed CANDICE SUMMERS NP [NON-STAFF PHY W/O PRIVILEGES] - Follow up/PCP as directed Additional Instructions: Use Tylenol and ibuprofen for pain control. Take your antibiotics as prescribed. Follow-up with orthopedic clinic tomorrow morning at 8 AM. It is a walk-in clinic and you do not need to have an appointment. Prescriptions: Smz/Tmp Ds Tablet [Bactrim Ds Tablet] 1 udtab PO BID #14 tablet
[2024-07-23 18:52] LABS: Absolute Neutrophil Ct (ANC) 5.77 x10^3/uL (1.78-5.38); BASOPHIL % 0.8 % (0.2-1.2); Basophil (Absolute #) 0.07 x10^3/uL (0.01-0.08); Eosinophil % 1.4 % (0.8-7.0); Eosinophil (Absolute #) 0.12 x10^3/uL (0.04-0.54); Hematocrit 42.6 % (40.1-51.0); Hemoglobin 14.3 g/dL (13.7-17.5); IMMATURE GRAN # 0.05 x10^3u/L (0.001-0.031); IMMATURE GRAN % 0.6 % (0.001-0.429); Lymphocyte (Absolute #) 1.91 x10^3/uL (1.32-3.57); Lymphocytes % 21.8 % (21.8-53.1); Mean Cell Volume 84.9 fL (79.0-92.2); Mean Corpuscular Hemoglobin 28.5 pg (25.7-32.2); Mean Corpuscular Hgb Concent. 33.6 g/dL (32.3-36.5); Mean Platelet Volume 10.3 fL (9.4-12.4); Monocyte (Absolute #) 0.84 x10^3/uL (0.30-0.82); Monocytes % 9.6 % (5.3-12.2); Neutrophil % 65.8 % (34.0-67.9); Platelet Count 293 x10^3/uL (163-337); Red Blood Count 5.02 x10^6/uL (4.63-6.08); Red Cell Distribution Width 12.1 % (11.6-14.4); White Blood Count 8.8 x10^3/uL (4.23-9.07)
[2024-07-23 19:05] LABS: ALBUMIN 4.4 g/dL (3.5-5.0); ANION GAP 14.8 MEQ/L (5-15); BILIRUBIN,TOTAL 0.5 mg/dL (0.2-1.3); Calcium 9.5 mg/dL (8.4-10.2); Creatinine 1 1.14 mg/dL (0.66-1.25); EST GLOMERULAR FILTRATION RATE 90.4 ML/MIN; Potassium 3.8 mmol/L (3.5-5.1); Total Protein 8.1 g/dL (6.3-8.2)
[2024-07-23 20:10] VITALS: BP 125/79; PULSE 82; RESP 19
[2024-07-23 20:33] VITALS: O2SAT 100
[2024-07-23] MEDS ORDERED: BACTRIM DS TABLET PO ONE (20:36)
[2024-07-23] MEDS ORDERED: DELTASONE 20 MG ONE (20:36)
[2024-07-23] MEDS: BACTRIM DS TABLET PO ONE (20:37)
[2024-07-23] MEDS: DELTASONE 20 MG PO ONE (20:37)
--- NOTE | 2024-07-24 08:51 | XRAY ---
Indication: Left elbow subcutaneous mass. Multiple contiguous axial images obtained through the left elbow without contrast as ordered. Cutaneous BB placed over region of interest. Comparison: None Cutaneous BB is seen distal upper arm anteromedially. Underlying cutaneous and subcutaneous soft tissue swelling/induration presumed inflammatory/infectious in etiology. There are also a few rounded subcutaneous noncalcified soft tissue masses, largest 4.4 x 1.5 x 1.4 cm. Lack of IV contrast precludes further characterization. No suspicious calcifications or abnormal fluid collection. Visualized musculature unremarkable for noncontrast exam. No acute fracture, dislocation, suspicious bony lesions, or osseous destructive process. Impression: Soft tissue swelling/induration in region of interest presumed inflammatory/infectious in etiology. A few small rounded noncalcified soft tissue masses, possible reactive lymphadenopathy. Correlate clinically.
== END 2024-07-23 20:47 | disposition home or self-care (01) ==
LOC: ED 17:52
DX: R22.32 Localized swelling, mass and lump, left upper limb (principal); M79.602 Pain in left arm; Z79.899 Other long term (current) drug therapy; Z72.0 Tobacco use
CPT/HCPCS: 36415; 73200; 80053; 85025; 87040; 99283; A9270-GY